=== PATIENT | male | born 1980 | race Caucasian/White ===

== ENCOUNTER 2023-04-08 14:03 | Inpatient (IN) | payer OTHER ==
[2023-04-08 15:00] LABS: #Monocytes 0.7 thou/uL (0.11-0.59); #Neutrophils 5.4 thou/uL (1.40-6.50); %Basophils 0.3 % (0.0-1.0); %Eosinophils 0.3 % (0.0-10.0); %Lymphocytes 14.4 % (21.0-51.0); %Monocytes 9.3 % (0.0-10.0); %Neutrophils 75.6 % (42.0-75.0); Hematocrit 42.5 % (42.0-52.0); Mean Corpuscular HGB CONC 35.3 g/dL (32.0-36.0); Mean Corpuscular Hemoglobin 31.8 pg (27.0-31.0); Mean Corpuscular Volume 90.2 fl (78.0-98.0); Platelet Count 103 10x3/uL (130-400); RBC Distribution Width 12.7 % (11.5-14.5); Red Blood Cell (RBC) Count 4.71 mill/uL (4.70-6.10); White Blood Cell (WBC) Count 7.2 10x3/uL (4.8-10.8)
[2023-04-08 15:35] LABS: ALT (SGPT) 27 U/L (8-55); AST (SGOT) 51 U/L (5-34); Albumin 4.6 g/dL (3.5-5.0); Alkaline Phosphatase 58 U/L (40-110); Anion Gap 12 mmol/L (10-20); BUN (Urea Nitrogen) 22 mg/dL (8.9-20.6); Bilirubin, Total 4.4 mg/dL (0.2-1.2); Calc. Creatinine Clearance 0 mL/min (70-130); Calcium 9.7 mg/dL (7.8-10.44); Carbon Dioxide 29 mmol/L (22-29); Chloride 101 mmol/L (98-107); Estimated GFR 113; Globulin 3.7 g/dL (2.4-3.5); Glucose 104 mg/dL (70-105); Potassium 4.2 mmol/L (3.5-5.1); Protein, Total 8.3 g/dL (6.0-8.3); Sodium 138 mmol/L (136-145)
[2023-04-08 16:55] LABS: Bacteria/HPF None Seen HPF (None Seen); Bilirubin Negative (Negative); Blood, Urine Negative (Negative); CAUTI Indications for Culture Pelvic or flank pain; Clarity Clear (Clear); Glucose, Urine (Dipstick) Normal (Negative); Ketone, Urine Negative (Negative); Leukocyte Negative Leu/uL (Negative); Nitrite Negative (Negative); Protein, Urine (Dipstick) 10 mg/dL (Neg-Trace); RBC/HPF None Seen HPF (0-3); Specific Gravity, Urine 1.031 (1.002-1.036); Squamous Epithelial None Seen HPF (0-3)
[2023-04-08 16:59] LABS: Urine Culture Reflex No No
[2023-04-08] MEDS ORDERED: Ketorolac Tromethamine 30 MG (1 mL) VIAL ONE (17:26)
[2023-04-08 17:33] LABS: Troponin I Less than 0.010 ng/mL (< 0.028)
[2023-04-08] MEDS ORDERED: Ondansetron PF 4 MG/2 ML Vial IVP PRN (20:44)
[2023-04-08] MEDS ORDERED: Ondansetron ODT 4 MG TAB PO PRN ×2 (20:44)
[2023-04-08] MEDS ORDERED: Lorazepam 1 MG TAB PO PRN (20:44)
[2023-04-08] MEDS ORDERED: Lorazepam 2 MG/ML VIAL IM PRN (20:44)
[2023-04-08] MEDS ORDERED: Electrolyte Replacement Protocol FS SCH (20:45)
[2023-04-08] MEDS ORDERED: Lorazepam 1 MG TAB PO SCH (20:45)
[2023-04-08] MEDS ORDERED: Acetaminophen 325 MG TAB PO PRN (21:14)
[2023-04-08 21:46] VITALS: BMI 30.6
[2023-04-08] MEDS: Lactated Ringer's 1,000 ML IV SCH ×2 (21:53→22:47)
[2023-04-08 22:25] LABS: INR-International Normal Ratio 1.3; PTT 28.6 sec (22.9-36.1); Prothrombin Time 16.1 sec (12.0-14.7)
[2023-04-08 22:28] LABS: D-Dimer Test 0.6 mcg/mL (0.27-0.43)
[2023-04-08 22:38] LABS: Amphetamine Not Detected (NotDetected); Barbiturates Screen Not Detected (NotDetected); Benzodiazepine Screen Detected (NotDetected); Cocaine Metabolite Screen Not Detected (NotDetected); Methadone Not Detected (NotDetected); Methamphetamine Not Detected (NotDetected); Opiate Screen Not Detected (NotDetected); Oxycodone Screen Not Detected (NotDetected); Phencyclidine (PCP) Not Detected (NotDetected); THC/Cannabinoid Screen Detected (NotDetected); Tricyclic Screen Not Detected (NotDetected)
[2023-04-08] MEDS: Clindamycin/D5W 900 MG in Premix 1 BAG IVPB SCH (22:46)
[2023-04-08] MEDS: Thiamine HCl 200 MG/2 ML VIAL SLOW IVP SCH (22:47)
[2023-04-08] MEDS: Ketorolac Tromethamine 30 MG (1 mL) VIAL IVP SCH (22:47)
[2023-04-08 22:50] LABS: Acetaminophen Less than 10 mcg/mL (10.0-30.0); Alcohol Less than 10.0 mg/dL (Less than 10); Salicylate Less than 8.0 mg/dL (15.0-30.0)
[2023-04-08 22:51] LABS: Bilirubin, Direct 0.4 mg/dL (0.1-0.3); Lipase 18 U/L (8-78); Phosphorus 2.7 mg/dL (2.3-4.7)
[2023-04-08 22:54] LABS: Troponin I Less than 0.010 ng/mL (< 0.028)
[2023-04-09 00:31] LABS: HBCM Index 0.09 S/CO (0-0.79); HBSAB Concentration Less than 8.00 mIU/mL; HIV (1/2) Antibody/Antigen Non-Reactive (NonReactive); HIV 1/2 INDEX 0.14 S/CO (<1.00); Hep B Surf AB Non-Reactive (NonReactive); Hep C IgG Ab Non-Reactive S/CO (NonReactive); Hep C Index 0.73 S/CO (0-0.79); Hepatitis B Core IgM Abs Non-Reactive S/CO (NonReactive)
[2023-04-09] MEDS ORDERED: Fluticasone Propionate Nasal Spray 16 gm Bottle NASAL PRN (01:07)
[2023-04-09 01:52] LABS: #Eosinphils 0.1 thou/uL (0.0-0.7); #Monocytes 0.8 thou/uL (0.11-0.59); #Neutrophils 2.8 thou/uL (1.40-6.50); %Basophils 0.4 % (0.0-1.0); %Eosinophils 1.5 % (0.0-10.0); %Lymphocytes 24.2 % (21.0-51.0); %Monocytes 15.6 % (0.0-10.0); %Neutrophils 58.1 % (42.0-75.0); Hematocrit 33.7 % (42.0-52.0); Mean Corpuscular HGB CONC 35.6 g/dL (32.0-36.0); Mean Corpuscular Volume 89.9 fl (78.0-98.0); Mean Platelet Volume 9.6 fL (7.4-10.4); RBC Distribution Width 12.3 % (11.5-14.5); Red Blood Cell (RBC) Count 3.75 mill/uL (4.70-6.10); White Blood Cell (WBC) Count 4.8 10x3/uL (4.8-10.8)
[2023-04-09 01:57] LABS: Platelet Count 73 10x3/uL (130-400)
[2023-04-09 02:07] LABS: Troponin I Less than 0.010 ng/mL (< 0.028)
[2023-04-09] MEDS: Magnesium 2 GM/50 ML(in water) 2 GM in Premix 1 BAG IVPB SCH (02:10)
[2023-04-09 02:23] LABS: HBSAg Index 0.32 S/CO (0-0.99); Hep B Surf Ag Non-Reactive S/CO (NonReactive)
[2023-04-09 02:35] LABS: ALT (SGPT) 19 U/L (8-55); AST (SGOT) 35 U/L (5-34); Albumin 3.2 g/dL (3.5-5.0); Alkaline Phosphatase 43 U/L (40-110); Anion Gap 13 mmol/L (10-20); BUN (Urea Nitrogen) 24 mg/dL (8.9-20.6); Bilirubin, Total 3.7 mg/dL (0.2-1.2); CK (CPK) 625 U/L (30-200); Calc. Creatinine Clearance 213 mL/min (70-130); Calcium 8.3 mg/dL (7.8-10.44); Carbon Dioxide 25 mmol/L (22-29); Chloride 104 mmol/L (98-107); Estimated GFR 115; Globulin 2.6 g/dL (2.4-3.5); Glucose 91 mg/dL (70-105); Potassium 3.6 mmol/L (3.5-5.1); Protein, Total 5.8 g/dL (6.0-8.3); Sodium 138 mmol/L (136-145)
[2023-04-09] MEDS: Diclofenac 1% 50 GM TOPICAL GEL TP SCH (03:48)
[2023-04-09] MEDS: Lactated Ringer's 1,000 ML IV SCH (03:55)
[2023-04-09] MEDS: Ketorolac Tromethamine 30 MG (1 mL) VIAL IVP SCH (08:54)
[2023-04-09] MEDS: Varenicline Tartrate 0.5 MG TAB PO SCH (08:55)
[2023-04-09] MEDS: Lidocaine 4% Patch TD SCH (08:55)
[2023-04-09] MEDS: Multivit, Therapeutic 1 TAB PO SCH (08:55)
[2023-04-09] MEDS: Diazepam 5 MG TAB PO SCH (08:56)
[2023-04-09] MEDS: Enoxaparin 40 MG (0.4 mL) SYRINGE SC SCH (08:56)
[2023-04-09] MEDS: Folic Acid 1 MG TAB PO SCH (08:56)
[2023-04-09] MEDS: Gabapentin 300 MG CAP PO SCH (08:57)
[2023-04-09] MEDS: Loratadine 10 MG TAB PO SCH (08:58)
[2023-04-09] MEDS: Acetaminophen 500 MG TAB PO PRN (08:58)
[2023-04-09] MEDS: Baclofen 10 MG TAB PO PRN (08:58)
[2023-04-09] MEDS ORDERED: Naltrexone Hcl 50 MG Tablet PO SCH (09:00)
[2023-04-09 11:36] LABS: Syphilis Antibody Nonreactive (Nonreactive); Syphilis Antibody Index 0.04 S/CO (<1.00 Non-Reactive)
[2023-04-09] MEDS: traMADol HCl 50 MG TAB PO SCH (13:33)
[2023-04-09] MEDS ORDERED: Lorazepam 1 MG TAB PO PRN (20:45)
[2023-04-09] MEDS: Transdermal Patch Removal TOP SCH (21:58)
[2023-04-09] MEDS: traZODone HCl 50 MG TAB PO SCH (21:58)
[2023-04-09] MEDS: Doxycycline 100 MG CAP PO SCH (21:59)
[2023-04-10 04:37] LABS: #Eosinphils 0.2 thou/uL (0.0-0.7); #Monocytes 0.4 thou/uL (0.11-0.59); #Neutrophils 2.3 thou/uL (1.40-6.50); %Basophils 0.5 % (0.0-1.0); %Eosinophils 4.1 % (0.0-10.0); %Lymphocytes 29.3 % (21.0-51.0); %Monocytes 10.3 % (0.0-10.0); %Neutrophils 55.6 % (42.0-75.0); Hematocrit 34.8 % (42.0-52.0); Hemoglobin 12.3 g/dL (14.0-18.0); Mean Corpuscular HGB CONC 35.3 g/dL (32.0-36.0); Mean Corpuscular Hemoglobin 31.3 pg (27.0-31.0); Mean Corpuscular Volume 88.5 fl (78.0-98.0); Mean Platelet Volume 10.2 fL (7.4-10.4); RBC Distribution Width 12.1 % (11.5-14.5); Red Blood Cell (RBC) Count 3.93 mill/uL (4.70-6.10); White Blood Cell (WBC) Count 4.2 10x3/uL (4.8-10.8)
[2023-04-10 04:53] LABS: Platelet Count 87 10x3/uL (130-400)
[2023-04-10 05:13] LABS: ALT (SGPT) 16 U/L (8-55); AST (SGOT) 25 U/L (5-34); Alkaline Phosphatase 49 U/L (40-110); Anion Gap 13 mmol/L (10-20); BUN (Urea Nitrogen) 15 mg/dL (8.9-20.6); Bilirubin, Total 2.5 mg/dL (0.2-1.2); Calc. Creatinine Clearance 246 mL/min (70-130); Carbon Dioxide 21 mmol/L (22-29); Chloride 109 mmol/L (98-107); Estimated GFR 120; Globulin 2.6 g/dL (2.4-3.5); Glucose 110 mg/dL (70-105); Potassium 3.7 mmol/L (3.5-5.1); Protein, Total 5.6 g/dL (6.0-8.3); Sodium 139 mmol/L (136-145)
[2023-04-10] MEDS: hydrOXYzine 25 MG TAB PO PRN (11:59)
[2023-04-10 15:56] LABS: Amphetamine Not Detected (NotDetected); Barbiturates Screen Not Detected (NotDetected); Benzodiazepine Screen Detected (NotDetected); Cocaine Metabolite Screen Not Detected (NotDetected); Methadone Not Detected (NotDetected); Methamphetamine Not Detected (NotDetected); Opiate Screen Not Detected (NotDetected); Oxycodone Screen Not Detected (NotDetected); Phencyclidine (PCP) Not Detected (NotDetected); THC/Cannabinoid Screen Detected (NotDetected); Tricyclic Screen Not Detected (NotDetected)
[2023-04-10] MEDS ORDERED: Lorazepam 1 MG TAB PO PRN (20:45)
[2023-04-10] MEDS ORDERED: Lorazepam 0.5 MG TAB PO SCH (20:45)
[2023-04-11 05:14] LABS: #Eosinphils 0.3 thou/uL (0.0-0.7); #Monocytes 0.4 thou/uL (0.11-0.59); #Neutrophils 2.1 thou/uL (1.40-6.50); %Basophils 0.7 % (0.0-1.0); %Eosinophils 6.4 % (0.0-10.0); %Lymphocytes 33.1 % (21.0-51.0); %Monocytes 8.6 % (0.0-10.0); %Neutrophils 50.7 % (42.0-75.0); Hematocrit 35.3 % (42.0-52.0); Hemoglobin 12.8 g/dL (14.0-18.0); Mean Corpuscular HGB CONC 36.3 g/dL (32.0-36.0); Mean Corpuscular Hemoglobin 31.9 pg (27.0-31.0); Mean Platelet Volume 9.8 fL (7.4-10.4); Platelet Count 106 10x3/uL (130-400); Red Blood Cell (RBC) Count 4.01 mill/uL (4.70-6.10); White Blood Cell (WBC) Count 4.1 10x3/uL (4.8-10.8)
[2023-04-11 05:48] LABS: ALT (SGPT) 15 U/L (8-55); AST (SGOT) 23 U/L (5-34); Albumin 3.2 g/dL (3.5-5.0); Alkaline Phosphatase 56 U/L (40-110); Anion Gap 12 mmol/L (10-20); BUN (Urea Nitrogen) 14 mg/dL (8.9-20.6); Bilirubin, Total 1.8 mg/dL (0.2-1.2); Calc. Creatinine Clearance 225 mL/min (70-130); Calcium 8.8 mg/dL (7.8-10.44); Carbon Dioxide 21 mmol/L (22-29); Chloride 109 mmol/L (98-107); Estimated GFR 117; Globulin 2.9 g/dL (2.4-3.5); Glucose 110 mg/dL (70-105); Potassium 3.7 mmol/L (3.5-5.1); Protein, Total 6.1 g/dL (6.0-8.3); Sodium 138 mmol/L (136-145)
[2023-04-11] MEDS: Enoxaparin 40 MG (0.4 mL) SYRINGE SC SCH (09:07)
[2023-04-11 12:33] VITALS: TEMP 97.9
[2023-04-11 16:03] VITALS: BP 132/75
[2023-04-11] MEDS ORDERED: Lorazepam 0.5 MG TAB PO PRN (20:45)
[2023-04-11] MEDS ORDERED: Thiamine 100 MG TAB PO SCH (23:00)
== END 2023-04-11 19:35 | disposition left against medical advice (07) | DRG 603 ==
LOC: ERS 14:03 → 2SW 21:18 → OBSVTOIN 04-09 16:03
PROVIDERS: ADMIT Family Medicine; ATTEND Family Medicine
DX: L03.115 Cellulitis of right lower limb (principal); M62.82 Rhabdomyolysis; Z59.00 Homelessness unspecified; T40.5X1A Poisoning by cocaine, accidental (unintentional), initial encounter; I10 Essential (primary) hypertension; K74.60 Unspecified cirrhosis of liver; F19.10 Other psychoactive substance abuse, uncomplicated; R07.89 Other chest pain; F10.10 Alcohol abuse, uncomplicated; F41.9 Anxiety disorder, unspecified; F31.9 Bipolar disorder, unspecified; F43.10 Post-traumatic stress disorder, unspecified; F17.210 Nicotine dependence, cigarettes, uncomplicated; M94.0 Chondrocostal junction syndrome [Tietze]; D69.6 Thrombocytopenia, unspecified; Z71.41 Alcohol abuse counseling and surveillance of alcoholic; Z71.51 Drug abuse counseling and surveillance of drug abuser; Z98.890 Other specified postprocedural states; Z71.6 Tobacco abuse counseling
CPT/HCPCS: 36415; 71045; 71275; 76705; 80053; 80306; 80307; 81001; 82248; 82550; 83690; 83735; 84100; 84484; 85025; 85379; 85610; 85730; 86705; 86706; 86780; 86803; 87340; 87389; 93005; 96361; 96365; 96367; 96372; 96374; 96375; 96376; 97139; G0378; J1650; J1885; J3411; J3475; J3490; J7120